=== PATIENT | male | born 1995 | race Caucasian/White ===

== ENCOUNTER 2017-09-09 18:14 | Emergency (ER) | payer BC ==
[2017-09-09 18:32] VITALS: BP 106/61; PULSE 123; O2SAT 96
--- NOTE | 2017-09-09 18:49 | ERPHSYRPT ---
- History of Present Illness Time Seen by Provider: 09/09/17 18:43 Source: patient, family Exam Limitations: no limitations Patient Subjective Stated Complaint: pt reports pain swelling to left lower leg- states he has a hx of mrsa and cellulitis and it feels like that-denies drainage -states he has been running a fever but dx with strep yesterday Triage Nursing Assessment: pt pale warm and dry-alert and answering all questions with no difficulty-resp easy and nonlaobred-moving all extremities with ease Physician History: The patient is a morbidly obese 22-year-old male with his mother complaining of a weeping sore to his lower mid left leg. The leg became red this morning. The redness has started to go away. He has a history of MRSA infections and was treated for such on his right leg a few months ago. He was treated with vancomycin at that time. He has a fever because he has strep throat. Yesterday he was started on penicillin 500 mg twice a day for strep throat. His past medical history significant for MRSA, hypothyroidism, depression, GERD , and hypertension. Timing/Duration: today, gradual onset, improved Severity: moderate Modifying Factors: Improves With: nothing Associated Symptoms: denies symptoms, fever Allergies/Adverse Reactions: erythromycin base Allergy (Intermediate, Verified 09/09/17 18:32) Hives Home Medications: Escitalopram Oxalate [Lexapro] 20 mg PO DAILY 09/09/17 [History] Levothyroxine Sodium [Synthroid] 125 mcg PO DAILY 09/09/17 [History] Loratadine 10 mg [Claritin 10 mg] 10 mg PO DAILY 09/09/17 [History] Ranitidine HCl [Zantac] 150 mg PO DAILY 09/09/17 [History] Valsartan/Hydrochlorothiazide [Valsartan-Hctz 160-12.5 mg Tab] 1 tablet PO DAILY 09/09/17 [History] Hx Tetanus, Diphtheria Vaccination/Date Given: Yes Hx Influenza Vaccination/Date Given: Yes Hx Pneumococcal Vaccination/Date Given: No Immunizations Up to Date: Yes - Review of Systems Constitutional: Fever, No Chills Eyes: No Symptoms Ears, Nose, & Throat: No Symptoms, Throat Pain Respiratory: No Cough, No Dyspnea Cardiac: No Chest Pain, No Edema, No Syncope Abdominal/Gastrointestinal: No Abdominal Pain, No Nausea, No Vomiting, No Diarrhea Genitourinary Symptoms: No Dysuria Musculoskeletal: No Back Pain, No Neck Pain Skin: Cellulitis, Rash, Skin Lesions Neurological: No Dizziness, No Focal Weakness, No Sensory Changes Psychological: No Symptoms Endocrine: No Symptoms Hematologic/Lymphatic: No Symptoms Immunological/Allergic: No Symptoms All Other Systems: Reviewed and Negative - Past Medical History Pertinent Past Medical History: Yes Neurological History: Migraines ENT History: No Pertinent History Cardiac History: Hypertension Respiratory History: No Pertinent History Endocrine Medical History: Hyperthyroidism GI Medical History: No Pertinent History History: No Pertinent History Psycho-Social History: Anxiety Male Reproductive Disorders: No Pertinent History Other Medical History: seasonal allergies - Past Surgical History Past Surgical History: No - Social History Smoking Status: Never smoker Exposure to second hand smoke: No Drug Use: none Patient Lives Alone: No - Nursing Vital Signs Nursing Vital Signs: Initial Vital Signs Temperature 100.6 F 09/09/17 18:27 Pulse Rate 123 H 09/09/17 18:27 Respiratory Rate 18 09/09/17 18:27 Blood Pressure 106/61 09/09/17 18:27 O2 Sat by Pulse Oximetry 96 09/09/17 18:27 Pain Scale Pain Intensity 7 - Physical Exam General Appearance: no apparent distress, alert Eye Exam: PERRL/EOMI, eyes nml inspection Neck Exam: normal inspection, non-tender, supple, full range of motion Respiratory Exam: normal breath sounds, lungs clear, No respiratory distress Cardiovascular Exam: regular rate/rhythm, normal heart sounds, normal peripheral pulses Gastrointestinal/Abdomen Exam: soft, other (morbidly obese) Rectal Exam: not done Back Exam: normal inspection, normal range of motion, No CVA tenderness, No vertebral tenderness Extremity Exam: normal inspection, normal range of motion, pelvis stable Neurologic Exam: alert, oriented x 3, cooperative, normal mood/affect, nml cerebellar function, nml station & gait, sensation nml, No motor deficits Skin Exam: rash, other (left lower leg is erythematous and warm. 1 X 0.5 cm oozing wound to mid anterior lower leg.) Lymphatic Exam: No adenopathy SpO2 Interpretation: normal SpO2: 96 Oxygen Delivery: Room Air - Progress Progress: unchanged - Departure Time of Disposition: 18:47 Departure Disposition: Home Clinical Impression: MRSA cellulitis Condition: Stable Critical Care Time: No Referrals: FRITCH,EYAL, [employer] [Primary Care Provider] - Additional Instructions: You have cellulitis that is likely caused by MRSA based on your recent history of MRSA infection. Stop taking penicillin for strep throat and begin clindamycin 300 mg 4 times a day for 10 days. Take tylenol and ibuprofen as needed for fever and pain. Follow up with your PMD tomorrow afternoon if the red rash has not improved. Prescriptions: Clindamycin HCl 1 cap PO QID #40 capsule
== END 2017-09-09 19:14 | disposition home or self-care (01) ==
LOC: ED 18:14
DX: L03.116 Cellulitis of left lower limb (principal); B95.62 Methicillin resistant Staphylococcus aureus infection as the cause of diseases classified elsewhere; I10 Essential (primary) hypertension; Z79.899 Other long term (current) drug therapy
CPT/HCPCS: 99282; 99283

== ENCOUNTER 2018-10-05 04:17 | Emergency (ER) | payer BC ==
[2018-10-05 04:39] VITALS: BP 138/100; PULSE 101; O2SAT 100
[2018-10-05] MEDS ORDERED: Sodium Chloride 0.9% 1000 ML 1,000 ML IV STA (04:43)
[2018-10-05] MEDS ORDERED: Sodium Chloride 0.9% 1000 ML 1,000 ML ONE (04:48)
[2018-10-05 05:03] LABS: BASOPHIL % 0.2 % (0.0-0.4); Basophil (Absolute #) 0.02 (0-0.4); Eosinophil % 3.2 % (0.00-5.0); Eosinophil (Absolute #) 0.35 (0-0.5); Granulocyte Absolute (ANC) 6.55 (1.4-6.9); Granulocytes % 60.1 % (36.0-66.0); Hematocrit 38.8 % (42-50); Lymphocyte (Absolute #) 3.29 (1.0-4.6); Lymphocytes % 30.2 % (24.0-44.0); Mean Cell Volume 90.2 fl (78-100); Mean Corpuscular Hemoglobin 27.9 pg (26-32); Mean Corpuscular Hgb Concent. 30.9 g/dl (32-36); Mean Platelet Volume 10.6 fl (6-9.5); Monocyte (Absolute #) 0.69 (0.0-1.3); Monocytes % 6.3 % (0.0-12.0); Platelet Count 223 K/mm3 (150-450); White Blood Count 10.9 K/mm3 (4.0-10.5)
[2018-10-05 05:05] LABS: Appearance CLEAR (CLEAR); Bilirubin NEGATIVE (NEGATIVE); Blood NEGATIVE Ery/ul (0-5); Epithelial Cells RARE /HPF (FEW); Glucose NEGATIVE (NEGATIVE); Ketones NEGATIVE (NEGATIVE); Leukocyte Esterase NEGATIVE (NEGATIVE); Mucus SLIGHT /HPF (NEGATIVE); Nitrite NEGATIVE (NEGATIVE); Protein,Urine Dip NEGATIVE (Negative); Specific Gravity 1.029 (1.005-1.025); Urobilinogen NEGATIVE mg/dL (0-1)
[2018-10-05 05:24] LABS: ALBUMIN 3.8 g/dL (3.5-5.0); ALKALINE PHOSPHATASE 85 U/L (38-126); BLOOD UREA NITROGEN 19 mg/dL (9-20); CHLORIDE 102 mmol/L (98-107); Calcium 9.3 mg/dL (8.4-10.2); Carbon Dioxide 31 mmol/L (22-30); Creatinine 1 0.66 mg/dL (0.66-1.25); Glucose 107 mg/dL (74-106); Potassium 4.2 mmol/L (3.5-5.1); SGOT/AST 23 U/L (17-59); SGPT/ALT 27 U/L (0-50); SODIUM 140 mmol/L (137-145); Total Protein 7.7 g/dL (6.3-8.2)
[2018-10-05] MEDS ORDERED: TORAdol 30 mg Injection IV ONE (05:33)
[2018-10-05] MEDS ORDERED: TORAdol 30 mg Injection ONE (05:38)
--- NOTE | 2018-10-05 05:39 | ERPHSYRPT ---
- History of Present Illness Source: patient Exam Limitations: no limitations Patient Subjective Stated Complaint: pt states he has had rt lower back pain since yesterday. states woke up with increased pain this am. Triage Nursing Assessment: pt alert and oriented, answers questions approp. pt ambulatory with steady gait noted. respirations nonlabored with lungs cta. abd soft and nontender to palpation. skin pink warm and dry. Physician History: Pt is a morbidly obese 23 y/o male. He presented to the ED with complains of pain in his back between the ribs and abdomen, in a skin fold. Pt states, the pain started a couple of days ago, and he took Ibuprofen for pain. Today the pain woke him up from sleep, and he came to the ED. The pt denies hematuria, frequency and urgency. No chest pain or palpitations. No SOB or cough. Timing/Duration: day(s) Quality: painful Severity: moderate Location: other (back, on R ) Possible Causes: no cause identified Allergies/Adverse Reactions: erythromycin base Allergy (Intermediate, Verified 10/05/18 04:39) Hives Home Medications: Levothyroxine Sodium [Synthroid] 125 mcg PO DAILY 09/09/17 [History] Loratadine 10 mg [Claritin 10 mg] 10 mg PO DAILY 09/09/17 [History] Ranitidine HCl [Zantac] 150 mg PO DAILY 09/09/17 [History] Furosemide 20 mg [Lasix 20 mg] 20 mg PO DAILY PRN PRN 10/05/18 [History] Irbesartan/Hydrochlorothiazide [Irbesartan-Hctz 300-12.5 mg Tb] 1 each PO DAILY 10/05/18 [History] Hx Tetanus, Diphtheria Vaccination/Date Given: Yes Hx Influenza Vaccination/Date Given: Yes Hx Pneumococcal Vaccination/Date Given: No Immunizations Up to Date: Yes - Review of Systems Constitutional: No Fever, No Chills Respiratory: No Cough, No Dyspnea Cardiac: No Chest Pain, No Edema, No Syncope Abdominal/Gastrointestinal: No Abdominal Pain, No Nausea, No Vomiting, No Diarrhea Musculoskeletal: Back Pain (skin fold on the R back), No Neck Pain Skin: Cellulitis (back on right in skin fold) Neurological: No Dizziness, No Focal Weakness, No Sensory Changes - Past Medical History Pertinent Past Medical History: Yes Neurological History: Migraines ENT History: No Pertinent History Cardiac History: Hypertension Respiratory History: No Pertinent History Endocrine Medical History: Hyperthyroidism GI Medical History: No Pertinent History History: No Pertinent History Psycho-Social History: Anxiety Male Reproductive Disorders: No Pertinent History Other Medical History: seasonal allergies - Past Surgical History Past Surgical History: No - Social History Smoking Status: Current every day smoker How long have you smoked: 1 yr Exposure to second hand smoke: No Drug Use: none Patient Lives Alone: No - Nursing Vital Signs Nursing Vital Signs: Initial Vital Signs Temperature 98.1 F 10/05/18 04:23 Pulse Rate 101 H 10/05/18 04:23 Respiratory Rate 20 10/05/18 04:23 Blood Pressure 138/100 10/05/18 04:23 O2 Sat by Pulse Oximetry 100 10/05/18 04:23 Pain Scale Pain Intensity 9 - Physical Exam General Appearance: no apparent distress, alert Eye Exam: PERRL/EOMI, eyes nml inspection Ears, Nose, Throat Exam: normal ENT inspection, pharynx normal, moist mucous membranes Neck Exam: normal inspection, non-tender, supple, full range of motion Respiratory Exam: normal breath sounds, lungs clear, No respiratory distress Cardiovascular Exam: regular rate/rhythm, normal heart sounds Gastrointestinal/Abdomen Exam: soft, mass, No tenderness Back Exam: other (tenderness of the R back.) Extremity Exam: normal inspection, normal range of motion Neurologic Exam: alert, oriented x 3, cooperative, normal mood/affect, sensation nml, No motor deficits Skin Exam: warm, other (tender to touch.) SpO2: 100 - Course Nursing assessment & vital signs reviewed: Yes Ordered Tests: Active Orders 24 hr Category Date Time Status CBC W DIFF Stat Lab 10/05/18 05:03 Completed CMP Stat Lab 10/05/18 05:03 Completed UA W/RFX UR CULTURE Stat Lab 10/05/18 05:03 Completed Medication Summary Generic Name Dose Route Start Last Admin Trade Name Freq PRN Reason Stop Dose Admin Sodium Chloride 1,000 mls @ 999 mls/hr 10/05/18 04:43 10/05/18 04:48 Sodium Chloride 0.9% 1000 Ml IV 10/05/18 05:43 999 mls/hr .Q1H1M STA Administration Vancomycin HCl 1 gm in 250 mls @ 167 mls/hr 10/05/18 05:45 Vancomycin 1gm/ Ns 250ml IV 10/05/18 07:44 Q1H JESSICA Discontinued Medications Generic Name Dose Route Start Last Admin Trade Name Ole PRN Reason Stop Dose Admin Sodium Chloride Confirm 10/05/18 04:48 Sodium Chloride 0.9% 1000 Ml Administered 10/05/18 04:49 Dose 1,000 mls @ .ROUTE .[facility] Lab/Rad Data: Laboratory Result Diagrams 10/05/18 05:03 10/05/18 05:03 Laboratory Results 10/05/18 10/05/18 10/05/18 Range/Units 05:03 05:03 05:03 WBC 10.9 H (4.0-10.5) K/mm3 RBC 4.30 (4.1-5.6) M/mm3 Hgb 12.0 L (12.5-18.0) gm/dl Hct 38.8 L (42-50) % MCV 90.2 (78-100) fl MCH 27.9 (26-32) pg MCHC 30.9 L (32-36) g/dl RDW 15.0 H (11.5-14.0) % Plt Count 223 (150-450) K/mm3 MPV 10.6 H (6-9.5) fl Gran % 60.1 (36.0-66.0) % Eos # (Auto) 0.35 (0-0.5) Absolute Lymphs (auto) 3.29 (1.0-4.6) Absolute Monos (auto) 0.69 (0.0-1.3) Lymphocytes % 30.2 (24.0-44.0) % Monocytes % 6.3 (0.0-12.0) % Eosinophils % 3.2 (0.00-5.0) % Basophils % 0.2 (0.0-0.4) % Absolute Granulocytes 6.55 (1.4-6.9) Basophils # 0.02 (0-0.4) Sodium 140 (137-145) mmol/L Potassium 4.2 (3.5-5.1) mmol/L Chloride 102 (98-107) mmol/L Carbon Dioxide 31 H (22-30) mmol/L Anion Gap 12.0 (5-15) MEQ/L BUN 19 (9-20) mg/dL Creatinine 0.66 (0.66-1.25) mg/dL Estimated GFR > 60.0 ML/MIN Glucose 107 H (74-106) mg/dL Calcium 9.3 (8.4-10.2) mg/dL Total Bilirubin 0.30 (0.2-1.3) mg/dL AST 23 (17-59) U/L ALT 27 (0-50) U/L Alkaline Phosphatase 85 (38-126) U/L Serum Total Protein 7.7 (6.3-8.2) g/dL Albumin 3.8 (3.5-5.0) g/dL Urine Color YELLOW (YELLOW) Urine Appearance CLEAR (CLEAR) Urine pH 5.0 (5-6) Ur Specific [place] 1.029 (1.005-1.025) Urine Protein NEGATIVE (Negative) Urine Ketones NEGATIVE (NEGATIVE) Urine Blood NEGATIVE (0-5) Nathaniel/ul Urine Nitrite NEGATIVE (NEGATIVE) Urine Bilirubin NEGATIVE (NEGATIVE) Urine Urobilinogen NEGATIVE (0-1) mg/dL Ur Leukocyte Esterase NEGATIVE (NEGATIVE) Urine WBC (Auto) NONE (0-5) /HPF Urine RBC (Auto) NONE (0-2) /HPF U Epithel Cells (Auto) RARE (FEW) /HPF Urine Bacteria (Auto) NONE (NEGATIVE) /HPF Urine Mucus (Auto) SLIGHT (NEGATIVE) /HPF Urine Culture Reflexed NO (NO) Urine Glucose NEGATIVE (NEGATIVE) mg/dL - Progress Progress: unchanged Progress Note: 10/05/18 05:41 Pt had lab work that show mild leukocytosis. He could not have CT, secondary to weight. I ordered Vancomycin and Toradol to treat cellulites. - Departure Departure Disposition: AMA Clinical Impression: Cellulitis of back Condition: Stable Referrals: SHERI FOSTER [Primary Care Provider] -
[2018-10-05] MEDS ORDERED: Vancomycin 1GM/ Ns 250ML*** 1 GM/250 ML IVPB IV SCH (05:45)
== END 2018-10-05 06:09 | disposition left against medical advice (07) ==
LOC: ED 04:17
DX: L03.312 Cellulitis of back [any part except buttock and flank] (principal); D72.829 Elevated white blood cell count, unspecified
CPT/HCPCS: 36415; 80053; 81001; 85025; 96360; 96374; 99284; J1885

== ENCOUNTER 2019-01-24 03:49 | Emergency (ER) | payer BC ==
[2019-01-24] MEDS ORDERED: DUONEB 0.5-3 MG/3 ml Neb IH ONE ×4 (03:58→05:17)
[2019-01-24] MEDS ORDERED: DELTASONE 20 MG PO ONE (03:58)
[2019-01-24] MEDS ORDERED: DELTASONE 20 MG ONE (04:15)
--- NOTE | 2019-01-24 04:15 | ERPHSYRPT ---
- History of Present Illness Source: patient Exam Limitations: no limitations Physician History: Patient has had increasing wheezing and dyspnea while driving in a car for 7 hours. Patient stopped multiple times and moved around. Patient has no past history of blood clots in his upper or lower extremities and none in his chest. Timing/Duration: yesterday Activities at Onset: none Severity of Dyspnea-Max: severe Severity of Dyspnea-Current: severe Possible Cause: occasional episodes Modifying Factors: Improves With: activity, albuterol inhaler. Worsens With: coughing, deep breath, exertion Associated Symptoms: constant, wheezing, No cough, No chest pain/discomfort, No edema, No fever, No insomnia, No loss of appetite, No lightheadedness, No weakness, No ankle swelling, No chills, No hemoptysis, No calf pain, No dizziness, No heaviness, No heart racing, No lightheadedness, No leg swelling, No painful breathing, No productive cough, No sweating, No tingling face International travel in last 2 weeks: No Allergies/Adverse Reactions: erythromycin base Allergy (Intermediate, Verified 10/05/18 04:39) [facility] Home Medications: Levothyroxine Sodium [Synthroid] 125 mcg PO DAILY 09/09/17 [History] Loratadine 10 mg [Claritin 10 mg] 10 mg PO DAILY 09/09/17 [History] Ranitidine HCl [Zantac] 150 mg PO DAILY 09/09/17 [History] Furosemide 20 mg [Lasix 20 mg] 20 mg PO DAILY PRN PRN 10/05/18 [History] Irbesartan/Hydrochlorothiazide [Irbesartan-Hctz 300-12.5 mg Tb] 12.5 each PO DAILY 10/05/18 [History] Albuterol 8 gm Mdi Hfa [Ventolin Hfa MDI] 8 gm IH QID 01/24/19 [History] hydroCHLOROthiazide [Hydrochlorothiazide] 12.5 mg PO DAILY 01/24/19 [History] Hx Tetanus, Diphtheria Vaccination/Date Given: Yes Hx Influenza Vaccination/Date Given: Yes Hx Pneumococcal Vaccination/Date Given: No - Review of Systems Constitutional: No Fever, No Chills Eyes: No Eye Pain, No Eye Redness, No Photophobia, No Tearing Ears, Nose, & Throat: Nose Congestion, Nose Discharge, Sinus Drainage Respiratory: Dyspnea, Dyspnea on Exertion (HAINES), Wheezing, No Cough, No Stridor Cardiac: No Chest Pain, No Edema, No Palpitations, No Syncope Abdominal/Gastrointestinal: No Abdominal Pain, No Nausea, No Vomiting, No Diarrhea Genitourinary Symptoms: No Dysuria Musculoskeletal: No Back Pain, No Neck Pain Skin: No Rash Neurological: No Dizziness, No Focal Weakness, No Sensory Changes Psychological: No Symptoms Endocrine: No Symptoms Hematologic/Lymphatic: No Easy Bleeding, No Easy Bruising All Other Systems: Reviewed and Negative - Past Medical History Pertinent Past Medical History: Yes Neurological History: Migraines ENT History: No Pertinent History Cardiac History: Hypertension Respiratory History: Asthma Endocrine Medical History: Hyperthyroidism GI Medical History: No Pertinent History History: No Pertinent History Psycho-Social History: Anxiety Male Reproductive Disorders: No Pertinent History Other Medical History: seasonal allergies - Past Surgical History Past Surgical History: No - Social History Smoking Status: Current every day smoker How long have you smoked: 1 yr Exposure to second hand smoke: No Drug Use: none Patient Lives Alone: No - Nursing Vital Signs Nursing Vital Signs: Initial Vital Signs Temperature 98.2 F 01/24/19 03:49 Pulse Rate 101 H 01/24/19 03:49 Respiratory Rate 22 01/24/19 03:49 Blood Pressure 155/83 01/24/19 03:49 O2 Sat by Pulse Oximetry 97 01/24/19 03:49 Pain Scale Pain Intensity 0 - Physical Exam General Appearance: no apparent distress, alert Eye Exam: PERRL/EOMI Ears, Nose, Throat Exam: hearing grossly normal, normal ENT inspection, normal pharynx, No nasal congestion, No pharyngeal erythema Neck Exam: normal inspection, supple, full range of motion, No lymphadenopathy ( R) Respiratory Exam: airway intact, prolonged expirations, wheezing, No respiratory distress, No accessory muscle use, No stridor Cardiovascular/Chest Exam: normal heart sounds, regular rate/rhythm, normal peripheral pulses, No edema Abdominal/Gastrointestinal Exam: soft, No tenderness, No distention, No mass Extremity Exam: non-tender, normal range of motion, normal inspection, no calf tenderness, no pedal edema, No calf tenderness Neurologic Exam: alert, oriented x 3, cooperative, child nutrition director II-XII nml as tested, sensation nml, No motor deficits Skin Exam: normal color, warm, No dry SpO2 Interpretation: normal SpO2: 97 O2 Delivery: Room Air - Radiology Exams Chest X-ray Interpretation: Interpreted by me, Reviewed by me, No Pneumonia, No Pneumothorax, No Infiltrates, Nml Mediastinum Ordered Tests: Active Orders 24 hr Category Date Time Status CHEST 1 VIEW (PORTABLE) Stat Exams 01/24/19 04:01 Taken Peak Expiratory Flow Rate ONCE RT 01/24/19 04:22 Active Respiratory Therapy Assessment DAILY RT 01/24/19 04:21 Active Medication Summary Discontinued Medications Generic Name Dose Route Start Last Admin Trade Name Freq PRN Reason Stop Dose Admin Albuterol/Ipratropium 9 ml 01/24/19 03:58 01/24/19 04:16 Duoneb 0.5-3 Mg/3 Ml Neb IH 01/24/19 03:59 9 ml STAT ONE Administration Albuterol/Ipratropium Confirm 01/24/19 04:09 Duoneb 0.5-3 Mg/3 Ml Neb Administered 01/24/19 04:10 Dose 9 ml IH .STK-MED ONE Albuterol/Ipratropium 3 ml 01/24/19 05:14 01/24/19 05:20 Duoneb 0.5-3 Mg/3 Ml Neb IH 01/24/19 05:15 3 ml STAT ONE Administration Albuterol/Ipratropium Confirm 01/24/19 05:17 Duoneb 0.5-3 Mg/3 Ml Neb Administered 01/24/19 05:18 Dose 3 ml IH .STK-MED ONE Prednisone 80 mg 01/24/19 03:58 01/24/19 04:17 Deltasone 20 Mg PO 01/24/19 03:59 80 mg STAT ONE Administration Prednisone Confirm 01/24/19 04:15 Deltasone 20 Mg Administered 01/24/19 04:16 Dose 80 mg .ROUTE .STK-MED ONE - Progress Progress: improved, re-examined Air Movement: good Progress Note: 01/24/19 05:14 Improved airflow throughout with increased wheeze throughout all lung antonio; patient subjectively feels better 01/24/19 05:47 Improved airflow with wheezes still present. No respiratory distress, no accessory muscle use noted. Patient feels subjectively much better than when he came in. Patient's pulse is 98 on re-evaluation Blood Culture(s) Obtained: No Antibiotics given: No Counseled pt/family regarding: diagnosis, need for follow-up, rad results - Departure Departure Disposition: Home Clinical Impression: Asthma exacerbation, mild, Dyspnea and respiratory abnormalities, Essential hypertension Condition: Good Critical Care Time: No Referrals: SHERI FOSTER [Primary Care Provider] - 01/26/19 Instructions: DASH Diet, Asthma, Adult (DC), Shortness of Breath (Dyspnea) (DC) Additional Instructions: Return immediately to the emergency department for re-evaluation if you have worsening shortness of breath, new chest pain, no dizziness or any other concerning sign or symptom you may have Forms: Work/School Release Form Prescriptions: Albuterol Sulfate [Proair Hfa] 8.5 gm IH Q4H PRN PRN #1 [email or web address] PRN Reason: Wheezing/Chest Congestion Albuterol/Ipratropium 3ml Neb* [DUONEB 0.5-3 MG/3 ml Neb] 3 ml NEBULIZE Q4H PRN PRN #1 box PRN Reason: Wheezing/Chest Congestion Nebulizer 1 each MC Q4H PRN PRN #1 kit PRN Reason: Wheezing/Shortness of Breath Prednisone 20 mg [Deltasone 20 mg] 60 mg PO DAILY PRN #9 tablet PRN Reason: Sore Throat Relief
[2019-01-24 05:52] VITALS: O2SAT 97
[2019-01-24 06:05] VITALS: BP 121/82; PULSE 105
--- NOTE | 2019-01-24 09:19 | XRAY ---
Indication: Dyspnea and wheezing. History asthma. Comparison: April 13, 2017. Portable chest demonstrates normal heart, lungs, and bony thorax again with azygous lobe.
== END 2019-01-24 06:18 | disposition home or self-care (01) ==
LOC: ED 03:49
DX: J45.901 Unspecified asthma with (acute) exacerbation (principal); R06.00 Dyspnea, unspecified; J98.9 Respiratory disorder, unspecified; I10 Essential (primary) hypertension
CPT/HCPCS: 71045; 94150; 94640; 99283; A9270-GY

== ENCOUNTER 2019-09-20 11:05 | Emergency (ER) | payer BC, OTHER ==
[2019-09-20 11:22] VITALS: O2SAT 97
[2019-09-20] MEDS ORDERED: XYLOCAINE 1%/Epi 1:100000 MDV 20 ML ONE (11:39)
[2019-09-20] MEDS ORDERED: Adacel Vial IM ONE (11:39)
--- NOTE | 2019-09-20 11:39 | ERPHSYRPT ---
- History of Present Illness Time Seen by Provider: 09/20/19 11:20 Source: patient Exam Limitations: no limitations Physician History: Patient is a 24yo M who presents to ED for evaluation of laceration to anterior aspect of right leg. Injury occurred just [employer]. Tetanus in not UTD. NO active bleeding. Patient was at work when he cut his leg on a metal cart. NO pain at rest. Only pain when ST is manipulated. Patient voices no other c/o. Timing/Duration: today Quality: painful Severity: mild Location: other (Rt. anteror leg, mid shaft) Associated Symptoms: denies symptoms Allergies/Adverse Reactions: erythromycin base Allergy (Intermediate, Verified 10/05/18 04:39) Hives Home Medications: Levothyroxine Sodium [Synthroid] 125 mcg PO DAILY 09/09/17 [History] Loratadine 10 mg [Claritin 10 mg] 10 mg PO DAILY 09/09/17 [History] Furosemide 20 mg [Lasix 20 mg] 20 mg PO DAILY PRN PRN 10/05/18 [History] Albuterol 8 gm Mdi Hfa [Ventolin Hfa MDI] 8 gm IH QID 01/24/19 [History] hydroCHLOROthiazide [Hydrochlorothiazide] 12.5 mg PO DAILY 01/24/19 [History] Hx Tetanus, Diphtheria Vaccination/Date Given: Yes Hx Influenza Vaccination/Date Given: Yes Hx Pneumococcal Vaccination/Date Given: No Travel Risk - International Travel Have you traveled outside of the country in past 3 weeks: No Have you or anyone close to you been diagnosed with or: No Do your reside in a community with a known COVID-19 case?: Yes If Yes where:: [facility] - Review of Systems Constitutional: No Symptoms, No Fever, No Chills Eyes: No Symptoms Ears, Nose, & Throat: No Symptoms Respiratory: No Symptoms, No Cough, No Dyspnea Cardiac: No Symptoms, No Chest Pain, No Edema, No Syncope Abdominal/Gastrointestinal: No Symptoms, No Abdominal Pain, No Nausea, No Vomiting, No Diarrhea Genitourinary Symptoms: No Symptoms, No Dysuria Musculoskeletal: No Symptoms, No Back Pain, No Neck Pain Skin: No Symptoms, No Rash Neurological: No Dizziness, No Focal Weakness, No Sensory Changes Psychological: No Symptoms Endocrine: No Symptoms Hematologic/Lymphatic: No Symptoms Immunological/Allergic: No Symptoms All Other Systems: Reviewed and Negative - Past Medical History Pertinent Past Medical History: Yes Neurological History: Migraines ENT History: No Pertinent History Cardiac History: Hypertension Respiratory History: Asthma Endocrine Medical History: Hyperthyroidism Musculoskeletal History: No Pertinent History GI Medical History: No Pertinent History History: No Pertinent History Psycho-Social History: Anxiety Male Reproductive Disorders: No Pertinent History Other Medical History: seasonal allergies - Past Surgical History Past Surgical History: No - Social History Smoking Status: Current every day smoker How long have you smoked: 1 yr Exposure to second hand smoke: No Drug Use: none Patient Lives Alone: No - Nursing Vital Signs Nursing Vital Signs: Initial Vital Signs Temperature 98.1 F 09/20/19 11:12 Pulse Rate 105 H 09/20/19 11:12 Respiratory Rate 20 09/20/19 11:12 Blood Pressure 162/99 09/20/19 11:12 O2 Sat by Pulse Oximetry 97 09/20/19 11:12 Pain Scale Pain Intensity 0 - Physical Exam General Appearance: no apparent distress, alert Eye Exam: PERRL/EOMI, eyes nml inspection Ears, Nose, Throat Exam: normal ENT inspection, pharynx normal, moist mucous membranes Neck Exam: normal inspection, non-tender, supple, full range of motion Respiratory Exam: normal breath sounds, lungs clear, No respiratory distress Cardiovascular Exam: regular rate/rhythm, normal heart sounds Gastrointestinal/Abdomen Exam: soft, mass, No tenderness Back Exam: normal inspection, normal range of motion, No CVA tenderness, No vertebral tenderness Extremity Exam: normal inspection, normal range of motion Neurologic Exam: alert, oriented x 3, cooperative, normal mood/affect, sensation nml, No motor deficits Skin Exam: normal color, warm, dry, laceration (10cm laceration with flap at Rt. Anterior leg. NO active bleeding. Extremity NVI distally. Compartments are soft. NO tendon injury. ) Lymphatic Exam: other SpO2 Interpretation: normal SpO2: 97 O2 Delivery: Room Air Procedures - Laceration/Wound Repair Right Lower Anterior Other Wound Location: Right (Right anterior leg. ) Wound Length (cm): 10 Wound's Depth, Shape: linear Wound Explored: clean Irrigated: Yes Hibiclens Prep: Yes Anesthesia: local, 1% lidocaine w/ Epi Volume Anesthetic (ccs): 4 Wound Debrided: minimal Wound Repaired With: sutures Suture Size/Type: 5-0, nylon Number of Sutures: 12 Layer Closure?: No Sterile Dressing Applied?: Yes Splint Applied?: No Sling Applied?: No - Course Nursing assessment & vital signs reviewed: Yes Ordered Tests: Medication Summary Discontinued Medications Generic Name Dose Route Start Last Admin Trade Name Ole PRN Reason Stop Dose Admin Diphtheria/Tetanus/Acell Pertussis 0.5 ml 09/20/19 11:18 09/20/19 11:45 Adacel Vial IM 09/20/19 11:19 0.5 ml .ONCE ONE Administration Diphtheria/Tetanus/Acell Pertussis Confirm 09/20/19 11:39 Adacel Vial Administered 09/20/19 11:40 Dose 0.5 ml IM .STK-MED ONE Lidocaine/Epinephrine 5 ml 09/20/19 11:18 Xylocaine 1%/Epi 1:108426 Mdv 20 Ml IJ 09/20/19 11:19 STAT ONE Lidocaine/Epinephrine Confirm 09/20/19 11:39 Xylocaine 1%/Epi 1:872808 Mdv 20 Ml Administered 09/20/19 11:40 Dose 1 ml .ROUTE .STK-MED ONE - Progress Progress: improved Progress Note: 09/20/19 12:18 Patient reassessed. He feels well. local lidocaine resolved pain. Patient received 12 sutures. NVI pre and post procedure. No complication. 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 Patient agrees to f/u with PMD within 48 hours for a wound check. Sutures may be removed in 1 week. Patient voices no other c/o at this time. Counseled pt/family regarding: diagnosis, need for follow-up, smoking cessation - Departure Departure Disposition: Home Clinical Impression: Laceration Condition: Good Critical Care Time: No Referrals: SHERI FOSTER [Primary Care Provider] - Instructions: Laceration Repair With Stitches (DC) Additional Instructions: Discharge/Care Plan TIMO ORTEGA was seen on 09/20/19 in the Emergency Room. The patient was counseled regarding Diagnosis,Lab results, Imaging studies, need for follow up and when to return to the Emergency Room. Prescriptions given: Discharge Note I have spoken with the patient and/or caregivers. I have explained the patient' s condition, diagnosis and treatment plan based on the information available to me at this time. I have answered the patient's and/or caregiver's questions and addressed any concerns. The patient and/or caregivers have as good understanding of the patient's diagnosis, condition and treatment plan as can be expected at this point. The vital signs have been stable. The patient's condition is stable and appropriate for discharge from the emergency department. The patient will pursue further outpatient evaluation with the primary care physician or other designated or consulting physician as outlined in the discharge instructions. The patient and/or caregivers are agreeable to this plan of care and follow-up instructions have been explained in detail. The patient and/or caregivers have received these instruction. The patient/and or caregivers are aware that any significant change in condition or worsening of symptoms should prompt an immediate return to this or the closest emergency department or call 911. Prescriptions: Doxycycline Hyclate 100 mg [Vibramycin 100 MG] 100 mg PO BID 7 Days #14 tab
[2019-09-20] MEDS: Adacel Vial IM ONE (11:45)
[2019-09-20] MEDS: XYLOCAINE 1%/Epi 1:100000 MDV 20 ML IJ ONE (12:08)
[2019-09-20 12:19] VITALS: BP 130/69; PULSE 79
== END 2019-09-20 12:23 | disposition home or self-care (01) ==
LOC: ED 11:05
DX: S81.811A Laceration without foreign body, right lower leg, initial encounter (principal); W26.8XXA Contact with other sharp object(s), not elsewhere classified, initial encounter; Y93.89 Activity, other specified; Y92.63 Factory as the place of occurrence of the external cause; Y99.0 Civilian activity done for income or pay; I10 Essential (primary) hypertension; F41.9 Anxiety disorder, unspecified; J45.909 Unspecified asthma, uncomplicated; E05.90 Thyrotoxicosis, unspecified without thyrotoxic crisis or storm; Z79.899 Other long term (current) drug therapy
CPT/HCPCS: 12004; 90471; 90715; 99284